=== PATIENT | female | born 1965 | race Caucasian/White ===

== ENCOUNTER 2024-05-09 11:09 | Day surgery (SDC) | payer MEDICARE, MEDICAID ==
[~2024-05-09] VITALS: Ht 154.9 cm; Wt 90.7 kg
[2024-05-09] VITALS (9 sets, daily range): BP systolic 120–152; BP diastolic 78–100; PULSE 69–93; RESP 14–19; TEMP 98.1; O2SAT 90–97
[2024-05-09] MEDS: famotidine 20mg tablet PO ONE (05:30)
[~2024-05-09 11:09] MED LIST: CLON0.1T2 PO; LEVE750T PO; LORA10TA7 PO; OMEP20CA16 PO; PARO20TA6 PO; PHEN100C12 PO; RISP3TAB77 PO; TOPI-95 PO; ringers solution, lacted 1,000 ML IV SCH
[2024-05-09] MEDS: cefazolin 2gm/D5W 100mL 100 ML IV ONE (11:41)
[2024-05-09] MEDS ORDERED: BUPIVAcaine/PF 2.5mg/ml (0.25%) 10ml vial ONE (13:42)
[2024-05-09] MEDS ORDERED: LIDOcaine 1% 30ml preserv. free vial ONE (13:42)
[2024-05-09] MEDS ORDERED: fentaNYL/PF 50MCG/1 ML 2ML syringe ONE (14:14)
[2024-05-09] MEDS: LIDOcaine 1% 30ml preserv. free vial IJ ONE (14:49)
[2024-05-09] MEDS ORDERED: enalaprilat dihydrate 2.5mg/2ml vial IV PRN (16:10)
[2024-05-09] MEDS ORDERED: ringers solution, lacted 1,000 ML IV SCH (16:10)
[2024-05-09] MEDS ORDERED: meperidine/PF 25mg/ml syringe IV PRN ×2 (16:10)
[2024-05-09] MEDS ORDERED: proCHLORperazine 10 MG/2 ml inj IV PRN (16:10)
[2024-05-09] MEDS ORDERED: ondansetron/PF 4mg/2ml inj IV PRN (16:10)
[2024-05-09] MEDS ORDERED: morphine 4 MG/ML inj SYRINge IV PRN (16:10)
[2024-05-09] MEDS ORDERED: morphine 2 MG/ML inj. syringe IV PRN (16:10)
[2024-05-09] MEDS ORDERED: labetalol 20mg/4ml (5mg/ml) syringe IV PRN (16:10)
== END 2024-05-09 17:09 | disposition home or self-care (01) ==
LOC: PAS 11:09
PROVIDERS: ATTEND Surgery
DX: D05.11 Intraductal carcinoma in situ of right breast (principal); G47.33 Obstructive sleep apnea (adult) (pediatric); K21.9 Gastro-esophageal reflux disease without esophagitis; F20.9 Schizophrenia, unspecified; Z79.899 Other long term (current) drug therapy; Z88.8 Allergy status to other drugs, medicaments and biological substances
CPT/HCPCS: 19301; 76098; 82948; A4215; A4618; A6253; A6258; A7000; J0690; J2001; J3010; J3490; J7030; J7120; Z7506; Z7508; Z7512; Z7610

== ENCOUNTER 2025-03-25 07:53 | Day surgery (SDC) | payer MEDICARE, MEDICAID ==
--- NOTE | 2025-03-20 15:20 | ELECTROCARDIOGRAPH REPORT ---
[facility] Test Date: 2025-03-20 Test Time: 15:16:55 Pat Name: TRACEE BISHOP Department: [facility]-PRE-OP Patient ID: [facility]-[id number] Room: Gender: F Director Telecommunications: RALPH : 1965 Requested By: GYPSY BLEVINS Order Number: [id number] Reading MD: Dr. NADINE Sol Measurements Intervals [place] Rate: 63 P: 36 NE: 160 QRS: 210 QRSD: 104 T: 33 QT: 441 QTc: 452 Interpretive Statements Sinus rhythm Probable right ventricular hypertrophy Electronically Signed On 03-20-2025 18:24:[address] NADINE Sol Please click the below link to view image of tracing.
[2025-03-20 15:33] LABS: BASOPHILS # (AUTO) 0.1 X10'3 (0-0.2); BASOPHILS % (AUTO) 0.6 % (0-1); EOSINOPHILS # (AUTO) 0.3 X10'3 (0-0.9); EOSINOPHILS % (AUTO) 3.2 % (0-6); LYMPHOCYTES # (AUTO) 4.1 X10'3 (1.1-4.8); LYMPHOCYTES % (AUTO) 38.5 % (21-51); MEAN CORPUSCULAR HEMOGLOBIN 29.2 PG (27.0-31.0); MEAN CORPUSCULAR HGB CONC 33.3 g/dL (33.0-36.5); MEAN CORPUSCULAR VOLUME 87.9 FL (78-98); MEAN PLATELET VOLUME 6.9 FL (7.4-10.4); MONOCYTES # (AUTO) 0.9 X10'3 (0-0.9); MONOCYTES % (AUTO) 8.1 % (2-12); NEUTROPHILS # (AUTO) 5.3 X10'3 (1.8-7.7); NEUTROPHILS % (AUTO) 49.6 % (42-75); PRE OP HEMATOCRIT 37.9 % (35.0-45.0); PRE OP HEMOGLOBIN 12.6 g/dL (12.0-16.0); PRE OP PLATELET COUNT 308 X10'3 (140-440); PRE OP WHITE BLOOD COUNT 10.7 10'3 (4.8-10.8); RED BLOOD COUNT 4.32 X10'6 (4.20-5.60); RED CELL DISTRIBUTION WIDTH 13.2 % (11.5-14.5)
[2025-03-20 15:46] LABS: ALBUMIN 3.7 G/DL (3.4-5.0); ALBUMIN/GLOBULIN RATIO 0.9 (1.1-1.5); ALKALINE PHOSPHATASE 162 IU/L (46-116); BLOOD UREA NITROGEN 15 MG/DL (7-18); BUN/CREATININE RATIO 17.6 (10.0-20.0); CALCIUM 9.3 MG/DL (8.5-10.1); CHLORIDE 106 MMOL/L (99-107); CREATININE 0.85 MG/DL (0.40-0.90); PRE OP ALT 28 U/L (30-65); PRE OP ANION GAP 6 (8-16); PRE OP AST 13 U/L (10-37); PRE OP BILIRUB, TOTAL 0.2 MG/DL (0.0-1.0); PRE OP GLUCOSE 93 MG/DL (70-104); PRE OP SODIUM 142 MMOL/L (135-145); TOTAL CARBON DIOXIDE 30.5 MMOL/L (24-32); eGFR 68 ML/MIN
[2025-03-20 16:13] LABS: PRE OP POTASSIUM 3.3 MMOL/L (3.4-5.1)
--- NOTE | 2025-03-21 20:35 | RADIOLOGY REPORT ---
EXAM: CT CT SINUS HISTORY: CHRONIC MAXILLARY SINUSITIS;POLYPOID SINUS DEGENER COMPARISON: None TECHNIQUE: Axial images were obtained and reformatted in coronal and sagittal planes. All CT scans at this medical facility are performed using dose modulation techniques as appropriate to a performed e xam including the following: Automated exposure control was utilized; adjustment of the MA and/or KV according to patient size; and use of iterative reconstruction technique. CT Dose: CTDI volume is 18 mGy. Dose-length product is 235 mGy*cm FINDINGS: PARANASAL SINUSES: Moderate diffuse paranasal sinus mucosal thickening noted predominantly involving the ethmoid and maxillary sinuses. Small mucous retention cysts noted in the bilateral maxillary sin uses. Small amount of fluid mixed with air is seen in a posterior right ethmoid air cell OSTIOMEATAL COMPLEXES: Unremarkable. Specifically, the infundibulum are patent. NASAL CAVITY: The osseous nasal septum is slightly deviated to the right. The nasal turbinates are un remarkable. MASTOIDS: Unremarkable. TEMPOROMANDIBULAR JOINTS: Unremarkable. ORBITS: Unremarkable. ORAL CAVITY: Grossly unremarkable. TONSILS AND ADENOIDS: Unremarkable. BONES/SOFT TISSUES: Unremarkable. OTHER: None. IMPRESSION: 1. Mild acute on chronic sinusitis. 2. Several small bilateral maxillary sinus mucous retention cysts noted. 3. The bilateral ostiomeatal complexes are patent.
[2025-03-25] VITALS (9 sets, daily range): BP systolic 116–149; BP diastolic 72–86; PULSE 68–88; RESP 12–21; TEMP 97.7; O2SAT 94–100
[~2025-03-25] VITALS: Ht 154.9 cm; Wt 85.0 kg
[2025-03-25] MEDS: ceFAZolin 2gm/dext,iso 50mL 50 ML IV ONE (05:30)
[2025-03-25] MEDS: tranexamic acid 1gm/0.7% sal. 100 ML IV ONE (05:30)
[~2025-03-25 07:53] MED LIST changes: +ANAS1TAB24 PO; +CLON0.1T PO; -CLON0.1T2 PO; -LEVE750T PO; +LEVE750T6 PO; -PHEN100C12 PO; +PHEN50TA4 PO; +RISP3TAB42 PO; -RISP3TAB77 PO; -ringers solution, lacted 1,000 ML IV SCH
[2025-03-25] MEDS: ringers solution, lacted 1,000 ML IV SCH ×2 (08:36→12:48)
[2025-03-25] MEDS: famotidine 20mg tablet PO ONE (08:36)
[2025-03-25] MEDS: oxymetazoline 15 ML nasal spray NS ONE ×2 (08:37→13:15)
[2025-03-25] MEDS ORDERED: LIDOcaine 1% W/epiNEPHrine 1:100,000 20ml vial ONE (09:59)
[2025-03-25] MEDS ORDERED: tranexamic acid 100mg/ml inj. ONE (10:02)
[2025-03-25] MEDS ORDERED: cocaine 4% topical solution 4ml bottle ONE ×2 (10:02→11:00)
[2025-03-25] MEDS ORDERED: methylPREDNISolone acetate 80mg/ml inj**IM only ONE (10:02)
[2025-03-25] MEDS ORDERED: BUPIVAcaine 0.5% inj/PF 0 ML ONE (10:03)
[2025-03-25] MEDS ORDERED: oxymetazoline 15 ML nasal spray NS ONE ×2 (10:03→11:02)
[2025-03-25] MEDS ORDERED: epiNEPHrine 1 mg/ml 30ml MDV ONE (10:03)
[2025-03-25] MEDS ORDERED: mupirocin 2% ointment 22GM ONE (10:03)
[2025-03-25] MEDS ORDERED: Thrombin (Bovine) 5,000 unit vial TP ONE (10:04)
[2025-03-25] MEDS ORDERED: morphine 2 MG/ML inj. syringe IV PRN (10:15)
[2025-03-25] MEDS ORDERED: hydrALAZINE 20mg/ml inj. IV PRN (10:15)
[2025-03-25] MEDS ORDERED: labetalol 20mg/4ml (5mg/ml) syringe IV PRN (10:15)
[2025-03-25] MEDS ORDERED: acetaminophen 1,000mg/100ml IV 100 ML IV PRN (10:15)
[2025-03-25] MEDS ORDERED: HYDROmorphone/PF 0.2 MG/ML SYRINGE IV PRN ×2 (10:15)
[2025-03-25] MEDS ORDERED: morphine 4 MG/ML inj SYRINge IV PRN (10:15)
[2025-03-25] MEDS ORDERED: ondansetron/PF 4mg/2ml inj IV PRN (10:15)
[2025-03-25] MEDS ORDERED: fentaNYL/PF 50MCG/1 ML 2ML syringe ONE (10:31)
[2025-03-25] MEDS ORDERED: midazolam 1 mg/ML 2ml injection ONE (10:31)
[2025-03-25] MEDS ORDERED: sevoflurane 250ml liquid IH ONE (10:51)
[2025-03-25] MEDS ORDERED: ondansetron/PF 4mg/2ml inj ONE (12:00)
[2025-03-25] MEDS ORDERED: propofol inj 20 ML IV ONE (12:01)
[2025-03-25] MEDS ORDERED: rocuronium 10mg/ml inj IV ONE (12:01)
[2025-03-25] MEDS ORDERED: dexamethasone sod phosphate 4mg/ml inj. ONE (12:01)
[2025-03-25] MEDS ORDERED: sugammadex 200mg/2ml injection IV ONE (12:06)
[2025-03-25] MEDS: salt irrigation nasal spray 45 ML SPRAY NS PRN (13:15)
[2025-03-25] MEDS: mupirocin 2% nasal ointment 1gm UD NS SCH (13:16)
--- NOTE | 2025-03-25 15:03 | OPERATIVE REPORT ---
DATE OF SURGERY: 03/25/2025 DICTATING PHYSICIAN: Javier Eric MD PREOPERATIVE DIAGNOSES: Deviated nasal septum, hypertrophic inferior turbinates, chronic rhinosinusitis with pansinus polyposis, and nasal polyps. POSTOPERATIVE DIAGNOSES: Deviated nasal septum, hypertrophic inferior turbinates, chronic rhinosinusitis with pansinus polyposis, and nasal polyps. PROCEDURES: * Septoplasty. * Excision of right side nasal polyps. * Excision of left side nasal polyps. * Nasal endoscopy surgical with partial ethmoidectomy, right and left with removal of polyps. * Stereotactic computer-assisted navigational procedure, extracranial. * Submucous resection of right and left inferior turbinates. SURGEON: Javier Anderson MD ANESTHESIA: General laryngeal mask, Dr. Dick. HISTORY: The patient is a 59-year-old woman with severe bilateral nasal airway obstruction and recurrent sinus infections. On physical examination, the nasal cavity was filled with polyps. Deviated nasal septum was present. Hypertrophic turbinates were also causing nasal airway obstruction. CT scan showed nasal cavities filled with polyposis, deviated nasal septum, hypertrophic inferior turbinates, and chronic rhinosinusitis with pansinus polyposis. On the basis of the above findings, I felt the patient had deviated nasal septum, hypertrophic turbinates, chronic rhinosinusitis with pansinus polyposis, and nasal polyps extending to the [place] bilaterally. The risks, alternatives, and benefits were explained to the patient and accepted. DESCRIPTION OF PROCEDURE: The patient was brought to the operating room, given a general endotracheal anesthesia, and prepped and draped in the usual fashion. A 1% Xylocaine with 1:100,000 epinephrine was infiltrated into the planned surgical sites. Image-guided system was attached to the patient and calibration and verification satisfactorily accomplished. The reason we had chosen to carry out this procedure under image guidance was the presence of pansinus polyposis reaching the base of the skull and lamina papyracea bilaterally. After suitable time elapsed for vasoconstriction, the operatives commenced with a septoplasty. A caudal incision was created on the right hand side of the septum and a mucoperichondrial and mucoperiosteal flap elevated. A [place] knife was used to transect the quadrilateral cartilage just caudal to the most caudal deflection and a mucoperichondrial and mucoperiosteal flap elevated off of the contralateral side. Then, the deviated portions of quadrilateral cartilage, perpendicular plate of the ethmoid, vomer, and maxillary crests were removed. The septal leaves were coapted using fibrin glue and 4-0 chromic on a P3 needle, which was also used to close the caudal incision. This yielded a midline septum. We then turned our attention to the polyps, which were filling the nasal cavity. We microshaved away confluent polyposis all the way back to the cho[place] on the left. We then turned our attention to the right side and removed polyposis filling the nasal cavity extending all the way back to the [place]. This was done with sharp dissection with tenotomy scissors and also with microshaver. Hemostasis was obtained with cottonoids soaked in 1:1000 adrenaline. We then turned our attention to the left-sided sinuses. The partial ethmoidectomy was carried out using straight and curved microshaver blades and Thru-Cut instrumentation, first removing the uncinate process and then the bulla ethmoidalis as described above. Cottonoids were placed on the left. We then turned our attention to the right. We carried out a partial ethmoidectomy removing polyps from the anterior ethmoid air cell system after removing the uncinate process. Finally, a submucous resection of the right and left inferior turbinates was carried out. This was done using the microshaver technique through an anterior stab wound. This was done to remove the hypertrophic submucosal stroma. Each inferior turbinate medial flap was allowed to recede itself down upon the chondral bone and held in place with a drop of fibrin glue. At the end of the procedure, hemostasis was intact. Bactroban water soluble ointment was used to coat the inferior turbinates. We placed PosiSep into each ethmoid cavity and then one cottonoid was placed in each nasal cavity per pressure hemostasis. These will be removed in the recovery room, leaving the patient unpacked. The patient tolerated the procedure well with the commitment of a minimal blood loss. Javier Eric MD TID: [id number] RECEIPT: [id number] ANIL/ANAHI/CARA cc: Brady Mitchell D.O.
== END 2025-03-25 13:58 | disposition home or self-care (01) ==
LOC: PAS 07:53 → MERGE 09:45 → PAS 13:58
PROVIDERS: ATTEND Otolaryngology
DX: J34.2 Deviated nasal septum (principal); J34.3 Hypertrophy of nasal turbinates; J34.9 Unspecified disorder of nose and nasal sinuses; J32.8 Other chronic sinusitis; J33.9 Nasal polyp, unspecified; G43.909 Migraine, unspecified, not intractable, without status migrainosus; F41.9 Anxiety disorder, unspecified; K21.9 Gastro-esophageal reflux disease without esophagitis; Z79.01 Long term (current) use of anticoagulants; Z79.899 Other long term (current) drug therapy; G47.30 Sleep apnea, unspecified; Z98.890 Other specified postprocedural states; Z88.8 Allergy status to other drugs, medicaments and biological substances; Z90.10 Acquired absence of unspecified breast and nipple
CPT/HCPCS: 30140; 30520; 31254; 36415; 61782; 70486; 80053; 82948; 85025; 85610; 85730; 93005; A4618; A6402; A7000; J0171; J1100; J2250; J2405; J2704; J3010; J3490; J7030; J7040; J7120; Z7506; Z7508; Z7512; Z7610; A6449; J1010

== ENCOUNTER 2025-05-06 07:50 | Day surgery (SDC) | payer MEDICARE, MEDICAID ==
[2025-04-30 14:20] LABS: MEAN PLATELET VOLUME 7.2 FL (7.4-10.4); PRE OP HEMATOCRIT 36.2 % (35.0-45.0); PRE OP HEMOGLOBIN 12.0 g/dL (12.0-16.0); PRE OP PLATELET COUNT 317 X10'3 (140-440); PRE OP WHITE BLOOD COUNT 8.4 10'3 (4.8-10.8); RED CELL DISTRIBUTION WIDTH 13.1 % (11.5-14.5)
[2025-04-30 14:33] LABS: PRE OP INR 1.0 INR; PRE OP PARTIAL THROMB. TIME 26.0 SECONDS (22-32); PRE OP PROTIME 9.9 SECONDS (9.0-12.0)
[2025-04-30 14:35] LABS: CREATININE 0.90 MG/DL (0.40-0.90); PRE OP ALT 27 U/L (30-65); PRE OP ANION GAP 12 (8-16); PRE OP AST 16 U/L (10-37); PRE OP BILIRUB, TOTAL 0.1 MG/DL (0.0-1.0); PRE OP GLUCOSE 111 MG/DL (70-104); PRE OP POTASSIUM 3.5 MMOL/L (3.4-5.1); PRE OP SODIUM 141 MMOL/L (135-145); TOTAL CARBON DIOXIDE 25.3 MMOL/L (24-32); eGFR 64 ML/MIN
[2025-05-06] VITALS (10 sets, daily range): BP systolic 128–158; BP diastolic 67–88; PULSE 58–81; RESP 10–16; TEMP 97.7; O2SAT 97–100
[~2025-05-06] VITALS: Ht 154.9 cm; Wt 82.7 kg
[2025-05-06] MEDS: ringers solution, lacted 1,000 ML IV SCH (08:50)
[2025-05-06] MEDS: ceFAZolin 2gm/dext,iso 50mL 50 ML IV ONE (08:50)
[2025-05-06] MEDS: tranexamic acid 1gm/0.7% sal. 100 ML IV ONE (08:50)
[2025-05-06] MEDS ORDERED: LIDOcaine 1% 30ml preserv. free vial ONE (08:57)
[2025-05-06] MEDS ORDERED: BUPIVAcaine 2.5mg/ml inj 50ml vial (contains preservative) ONE (08:57)
[2025-05-06] MEDS: oxymetazoline 15 ML nasal spray NS ONE (09:22)
[2025-05-06] MEDS ORDERED: epiNEPHrine 1 mg/ml 30ml MDV ONE (10:04)
[2025-05-06] MEDS ORDERED: LIDOcaine 1% W/epiNEPHrine 1:100,000 20ml vial ONE (10:04)
[2025-05-06] MEDS ORDERED: cocaine 4% topical solution 4ml bottle ONE (10:04)
[2025-05-06] MEDS ORDERED: oxymetazoline 15 ML nasal spray NS ONE (10:05)
[2025-05-06] MEDS ORDERED: fentaNYL /PF 50mcg/ml 5ml ampule ONE (10:29)
[2025-05-06] MEDS ORDERED: MIDAZolam 1 MG/ML 5ML VIAL ONE (10:29)
[2025-05-06] MEDS ORDERED: rocuronium 10mg/ml inj IV ONE (10:29)
[2025-05-06] MEDS ORDERED: ondansetron/PF 4mg/2ml inj ONE (10:29)
[2025-05-06] MEDS ORDERED: LIDOcaine 2% (20mg/ml) 5ml vial ONE (10:30)
[2025-05-06] MEDS ORDERED: acetaminophen 1,000mg/100ml IV 100 ML IV ONE (10:30)
[2025-05-06] MEDS ORDERED: propofol inj 20 ML IV ONE (10:30)
[2025-05-06] MEDS ORDERED: desflurane 240ml liquid inh. IH ONE (10:31)
[2025-05-06] MEDS ORDERED: labetalol 20mg/4ml (5mg/ml) syringe IV ONE (10:53)
[2025-05-06] MEDS ORDERED: dexamethasone sod phosphate 4mg/ml inj. ONE (11:06)
[2025-05-06] MEDS ORDERED: ringers solution, lacted 1,000 ML IV SCH (11:15)
[2025-05-06] MEDS ORDERED: morphine 4 MG/ML inj SYRINge IV PRN (11:15)
[2025-05-06] MEDS ORDERED: fentaNYL/PF 50MCG/1 ML 2ML syringe IV PRN ×2 (11:15)
[2025-05-06] MEDS ORDERED: hydrALAZINE 20mg/ml inj. IV PRN (11:15)
[2025-05-06] MEDS ORDERED: ondansetron/PF 4mg/2ml inj IV PRN (11:15)
[2025-05-06] MEDS ORDERED: labetalol 20mg/4ml (5mg/ml) syringe IV PRN (11:15)
--- NOTE | 2025-05-06 13:13 | OPERATIVE REPORT ---
DATE OF SURGERY: 05/06/2025 DICTATING PHYSICIAN: Javier Eric MD PREOPERATIVE DIAGNOSIS: Chronic rhinosinusitis with polyposis involving frontal, ethmoid, maxillary and sphenoid sinuses bilaterally. POSTOPERATIVE DIAGNOSIS: Chronic rhinosinusitis with polyposis involving frontal, ethmoid, maxillary and sphenoid sinuses bilaterally. PROCEDURES: * Nasal endoscopy surgical with right and left frontal sinusotomy with removal of polyps. * Nasal endoscopy surgical with right and left total ethmoidectomy with removal of polyps. * Nasal endoscopy surgical with right and left maxillary sinusotomy with removal of polyps. * Nasal endoscopy surgical with right and left sphenoidotomy with removal of polyps. * Stereotactic computer-assisted navigational procedure, extracranial. SURGEON: Javier Eric MD ANESTHESIA: General endotracheal. ANESTHESIOLOGIST: Dr. Campbell. HISTORY: The patient is a 59-year-old developmentally challenged female with severe nasal airway obstruction and headache for years, refractory to medical management. On physical examination, the nasal cavities were filled with polyposis and CT scan confirmed pansinus polyposis. On the basis of the above findings, I felt the patient had pansinus polyposis and the risks, alternatives, and benefits of surgery were explained to the patient and accepted. DESCRIPTION OF PROCEDURE: The patient was brought to the operating room and given a general endotracheal anesthesia and prepped and draped in the usual fashion. A 1% Xylocaine with 1:100,000 epinephrine was infiltrated into the planned surgical site utilizing endoscope. Image-guided system was attached to the patient and calibration and verification satisfactorily accomplished. The reason we had chosen to carry out the procedure under image guidance was the presence of polyposis along the base of the skull involving the roof of the ethmoid, frontal and sphenoid sinuses. The first procedure to be carried out was the left total ethmoidectomy. We entered the left ethmoid and dissected in an anterograde fashion inferiorly and a retrograde fashion superiorly along the base of the skull removing confluent polyposis. We identified the medial wall of the maxillary sinus. This was completely removed up to the shoulder of the inferior turbinate and polyposis removed from within the maxillary sinus using giraffe forceps and microshaver. We continued dissecting back into the sphenoethmoid recess and removed polyposis and then penetrated into the sphenoid and opened the sphenoid ostium creating a sphenoidotomy. Polyposis was removed from within the left sphenoid. Finally, on the left, we dissected up into the frontal sinus and removed polyposis. This was done using curved image-guided probe and of course intermittent usage of the image guidance system. Giraffe forceps were utilized and microshaver. Cottonoids were placed on the left. We then turned our attention to the right. We carried out a right frontal sinusotomy, a right total ethmoidectomy, a right middle medial maxillary antrostomy with removal of polyps, and a right sphenoidotomy with removal of polyps. Utilizing the same techniques, having encountered the same findings, namely pansinus polyposis. At the end of the procedure, hemostasis was intact. We placed a Vectra stent into each frontal sinus. The stent was expanded with 2.5 mL of Decadron. Then, the ethmoid cavity was filled with PosiSep soaked in thrombin. One cottonoid was placed in each nasal cavity for pressure hemostasis. These will be removed in the recovery room, leaving the patient unpacked. The patient tolerated the procedure well with a accompaniment of a minimal blood loss. Javier Eric MD TID: [id number] RECEIPT: [id number] ANIL/ANAHI cc: Brady Torrez D.O.
[2025-05-06] MEDS: salt irrigation nasal spray 45 ML SPRAY NS ONE (13:40)
--- NOTE | 2025-05-08 15:49 | PATHOLOGY REPORT ---
[facility] [address] [place] [address] SURGICAL PATHOLOGY REPORT CaseNumber: [id number] Surgeon:Javier Eric M.D. CLINICAL INFORMATION CLINICAL INFORMATION: Polyposis. DIAGNOSIS DIAGNOSIS: A.SINUS, LEFT; FUNCTIONAL ENDOSCOPIC SINUS SURGERY - INFLAMMATORY POLYPS. DIAGNOSIS: B.SINUS, RIGHT; FUNCTIONAL ENDOSCOPIC SINUS SURGERY - INFLAMMATORY POLYPS. MICROSCOPIC DESCRIPTION A. SINUS, LEFT MICROSCOPIC DESCRIPTION: One slide is examined. The polyps are secondary to intense inflammation. The glandular elements and the mucosal surface are without pre-malignant or malignant change. Fungal org anisms or viral changes is not evident. B. SINUS, RIGHT MICROSCOPIC DESCRIPTION: One slide is examined. The polyps are secondary to intense inflammation. The glandular elements and the mucosal surface are without pre-malignant or malignant change. Fungal org anisms or viral changes is not evident. (st) GROSS DESCRIPTION A. SINUS, LEFT GROSS DESCRIPTION: Received in a container of formalin labeled with the patient's name, number, and " left sinus" is a 2 cm aggregate of irregularly shaped pieces of bone and pink-zelaya to zelaya soft tissue. The specimen is decalcified and entirely submitted as A1. The time at which the specimen was removed was 1115. The time at which the specimen was placed in formalin was 1149. B. SINUS, RIGHT GROSS DESCRIPTION: Received in a container of formalin labeled with the patient's name, number, and " right sinus" is a 4 cm aggregate of irregularly shaped pieces of bone and pink-zelaya to zelaya soft tissue . The specimen is decalcified and entirely submitted as B1-B2. The time at which the specimen was rem pete was 1115. The time at which the specimen was placed in formalin was 1149. Electronically signed by: Vadim Almanzar M.D. 05/08/2025 3:10:00 PM
== END 2025-05-06 13:54 | disposition home or self-care (01) ==
LOC: PAS 07:50
PROVIDERS: ATTEND Otolaryngology
DX: J32.9 Chronic sinusitis, unspecified (principal); J33.8 Other polyp of sinus; F41.9 Anxiety disorder, unspecified; K21.9 Gastro-esophageal reflux disease without esophagitis; G43.909 Migraine, unspecified, not intractable, without status migrainosus; Z79.899 Other long term (current) drug therapy; Z98.890 Other specified postprocedural states; G47.30 Sleep apnea, unspecified; Z88.8 Allergy status to other drugs, medicaments and biological substances; Z79.01 Long term (current) use of anticoagulants
CPT/HCPCS: 31257; 31267; 31276; 36415; 61782; 80053; 82948; 85025; 85610; 85730; 87070; 87075; 87102; 87186; A4618; A6402; A7000; J0131; J0171; J1100; J2003; J2250; J2405; J2704; J3010; J3490; J7030; J7040; J7120; Z7506; Z7508; Z7512; Z7610; 87077; A6449